=== PATIENT | male | born 1935 | race Caucasian/White ===

== ENCOUNTER → 2017-12-06 | Outpatient (CLI) | payer MEDICARE, OTHER ==
--- NOTE | 2017-12-06 11:49 | RAD ---
EXAM: Head CT without contrast. HISTORY: Tremor. TECHNIQUE: Computed tomographic images of the head were obtained without contrast. COMPARISON: 07/20/2004. FINDINGS: There is no acute or subacute extra-axial or intraparenchymal hemorrhage. There is no mass effect or midline shift. There is no hydrocephalus. There are areas of decreased attenuation within the cerebral white matter, nonspecific and likely related to chronic small vessel disease. There is cerebral volume loss with increased extra-axial space. The visualized portions of the orbits, paranasal sinuses and mastoid air cells are unremarkable. No suspicious calvarial lesion is seen. IMPRESSION: 1. Decreased attenuation within the cerebral white matter, a nonspecific finding likely due to chronic small vessel disease. 2. Cerebral atrophy. PQRS Compliance Statement: One or more of the following individualized dose reduction techniques were utilized for this examination: 1. Automated exposure control 2. Adjustment of the mA and/or kV according to patient size 3. Use of iterative reconstruction technique
== END | disposition home or self-care (01) ==
LOC: CT 10:13
PROVIDERS: ATTEND Specialist
DX: G31.9 Degenerative disease of nervous system, unspecified (principal); I73.9 Peripheral vascular disease, unspecified
CPT/HCPCS: 70450

== ENCOUNTER → 2017-12-13 | Outpatient (CLI) | payer MEDICARE, OTHER ==
--- NOTE | 2017-12-13 12:22 | RAD ---
Exam : Carotid Duplex with Grayscale Ultrasound and Spectral and Color Doppler Analysis 12/13/2017 12:15 PM Clinical Indications: Syncopal episode approximately 8 months ago. Comparison study: None available. RS Compliance Statement - Stenosis calculations for CT, MR and conventional angiography are based upon measurement of the distal ICA diameter in accordance with the NASCET methodology. Stenosis calculations for carotid ultrasound studies are derived from validated velocity criteria which are known to correlate with the NASCET methodology. Findings: The common, internal and external carotid arteries were examined by grayscale, color and spectral Doppler ultrasound. Vertebral artery flows antegrade bilaterally. No focal consolidations in peak systolic velocity indicative of hemodynamically significant stenosis are identified. Mild atherosclerotic vascular calcification is seen involving the left carotid bulb. Similarly, mild atherosclerotic vascular calcification is seen involving the right carotid bulb. Some tortuosity of the internal carotid arteries appears to be present by ultrasound. 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 There is less than 50% stenosis of the bilateral internal carotid arteries by ultrasound criteria. Electronically signed by: Tony Otoole MD (12/13/2017 12:18 PM) [id number]
== END | disposition home or self-care (01) ==
LOC: US 10:05
PROVIDERS: ATTEND Specialist
DX: I65.23 Occlusion and stenosis of bilateral carotid arteries (principal)
CPT/HCPCS: 93880